=== PATIENT | female | born 1975 | race Hispanic/Latino ===

== ENCOUNTER → 2019-03-09 | Outpatient (CLI) | payer OTHER | END | disposition home or self-care (01) | LOC: RAH 08:43 | PROVIDERS: ATTEND Family Medicine | DX: E03.9 Hypothyroidism, unspecified (principal) | CPT/HCPCS: 76536 ==

== ENCOUNTER 2019-05-22 04:06 | Emergency (ER) | payer OTHER ==
[2019-05-22] MEDS ORDERED: ASPIRIN 81MG TAB.CHEW ONE (04:19)
[2019-05-22 04:41] LABS: BASOPHILS % (AUTO) 0.7 % (0.0-5.0); LYMPHOCYTES % (AUTO) 42.8 % (21.0-51.0); MEAN CORPUSCULAR HEMOGLOBIN 24.1 pg (27.0-33.0); MEAN CORPUSCULAR HGB CONC 32.2 g/dL (32.0-36.0); MEAN CORPUSCULAR VOLUME 74.8 fL (79-99); NEUTROPHILS % (AUTO) 47.5 % (40.0-77.0); NUCLEATED RED BLOOD CELLS 0.1 % (0.0-0.19); PLATELET COUNT (AUTO) 444 K/uL (130-400); RED BLOOD CELL COUNT(AUTO) 4.68 MIL/uL (4.00-5.50); RED CELL DISTRIBUTION WIDTH 17.3 % (11.0-15.5); WHITE BLOOD COUNT (AUTO) 7.2 K/uL (4.8-10.8)
[2019-05-22] MEDS ORDERED: ORPHENADRINE CITRATE 30 MG/ML ML ONE (04:44)
[2019-05-22 04:58] LABS: INR 0.93 (0.85-1.15); PARTIAL THROMBOPLASTIN TIME 25.6 SEC (26.3-35.5); PROTHROMBIN TIME 9.8 SEC (9.6-11.6)
[2019-05-22 05:03] LABS: CREATININE 0.9 mg/dL (0.5-1.5); POTASSIUM 3.7 mmol/L (3.5-5.1)
[2019-05-22 05:08] LABS: ALBUMIN 3.5 g/dL (3.5-5.0); BILIRUBIN,TOTAL 0.3 mg/dL (0.2-1.0); TOTAL PROTEIN, SERUM 7.9 g/dL (6.0-8.3)
[2019-05-22 05:13] LABS: B-TYPE NATRIURETIC PEPTIDE 10 pg/mL (0-100)
[2019-05-22] MEDS ORDERED: KETOROLAC TROMETHAMINE 30MG/ML ONE (06:25)
== END 2019-05-22 06:44 | disposition home or self-care (01) ==
LOC: EDH 04:06
DX: R07.89 Other chest pain (principal); M54.6 Pain in thoracic spine; M62.838 Other muscle spasm; R42 Dizziness and giddiness; R55 Syncope and collapse; E11.9 Type 2 diabetes mellitus without complications
CPT/HCPCS: 36415; 71045; 80053; 82550; 83880; 84484; 85025; 85610; 85730; 93005; 96374; 96375; 99285; J1885; J2360

== ENCOUNTER 2024-12-02 00:28 | Observation (INO) | payer OTHER ==
[~2024-12-02] VITALS: Ht 167.6 cm; Wt 93.0 kg
[2024-12-02 01:09] LABS: BASOPHILS # (AUTO) 0.04 K/uL (0.00-0.20); BASOPHILS % (AUTO) 0.5 % (0.0-5.0); EOSINOPHILS # (AUTO) 0.16 K/uL (0.00-0.70); EOSINOPHILS % (AUTO) 2.1 % (0.0-8.0); HEMATOCRIT 27.3 % (36-48); IMMATURE GRANULOCYTE ABSOLUTE 0.03 K/uL (0-1); LYMPHOCYTES # (AUTO) 2.4 K/uL (1.0-4.8); LYMPHOCYTES % (AUTO) 31.7 % (21.0-51.0); MEAN CORPUSCULAR HEMOGLOBIN 19.2 pg (27.0-33.0); MEAN CORPUSCULAR HGB CONC 28.2 g/dL (32.0-36.0); MEAN CORPUSCULAR VOLUME 67.9 fL (79-99); MONOCYTES # (AUTO) 0.5 K/uL (0.1-1.0); MONOCYTES % (AUTO) 6.1 % (3.0-13.0); NEUTROPHILS # (AUTO) 4.5 K/uL (1.8-7.7); NEUTROPHILS % (AUTO) 59.2 % (40.0-77.0); PLATELET COUNT (AUTO) 447 K/uL (130-400); RED BLOOD CELL COUNT(AUTO) 4.02 MIL/uL (4.00-5.50); RED CELL DISTRIBUTION WIDTH 19.5 % (11.0-15.5); WHITE BLOOD COUNT (AUTO) 7.5 K/uL (4.8-10.8)
[2024-12-02] MEDS: acetaMINOPHEN 500 MG TABLET PO ONE (01:13)
[2024-12-02 01:18] LABS: CREATININE 0.8 mg/dL (0.5-1.0); POTASSIUM 3.7 mmol/L (3.5-5.1)
--- NOTE | 2024-12-02 02:00 | ERN ---
ED Note History of Present Illness Stated Complaint: C/O CP WITH SOB Chief Complaint: Chest Pain Time Seen by MD: 00:32 Dictation: Patient comes in the hospital. Because she said she had some chest tightness. Was shortness of breath. She stated that this was about 3-4 hours prior to admission. Around 9:00 p.m.. She comes in around midnight. 1:00 a.m.. She says she does have AFib takes beta-fe and Eliquis. Denies any other previous medical problems denies any previous heart attack strokes Allergies: Coded Allergies: No Known Drug Allergies (Unverified Allergy, Unknown, 05/22/19) Past Medical History Past Medical History: A-Fib, Anemia, Diabetes-Type II Surgical History: Cholecystectomy, Other Surgical History Other: TUBAL LIGATION Review of System Dictation Constitutional: Negative for fever,chills, and weight loss Eyes: Negative for injury, pain,redness, and discharge ENT: Negative for injury,pain or swelling Cardiovascular: Chest pain Respiratory: Negative for shortness of breath, cough, and wheezing, Abdomen/GI: Negative for abdominal pain, nausea, vomiting, diarrhea, and constipation Back: Negative for injury and pain : Negative for injury, bleeding and discharge MS/Extremity: Negative for injury and deformity Skin: Negative for rash, and discoloration Neuro: Negative for headache, weakness, numbness, tingling, and seizure Psych: Negative for suicide ideation, homicidal ideation, and hallucinations Initial Vital Sign VS Vital Signs Date Time Temp Pulse Resp B/P (MAP) Pulse Ox O2 Delivery O2 Flow Rate FiO2 12/02/24 00:36 98.4 97 20 119/76 98 Room Air 12/02/24 01:07 0 21 Physical Exam Dictation General: awake, alert, NAD Head/Face: Normocephalic, atraumatic Eyes: PERRL, EOMI, vision at baseline ENT: oral cavity clear, TMs clear, no signs of infection Neck: Trachea midline, supple, no nuchal rigidity Cardiovascular: RRR, normal S1/S2, No MRGs, no JVD Respiratory: CTAB, no respiratory distress, No rales or wheezes Abdomen: Soft, non-tender, non-distended, normal bowel sounds, no guarding or rebound. Skin: Warm, dry, normal turgor, no rash MS/Extremity: Pulses equal, no cyanosis, neurovascular intact, FROM Neuro: COAx4, GCS 15, strength 5/5, CN 2-12 intact, normal cerebellar exam, normal gait, Psych: Normal behavior, mood, and affect normal Results (Laboratory/Radiology) Laboratory/Radiology Laboratory Tests Test 12/02/24 00:57 White Blood Count 7.5 K/uL (4.8-10.8) Red Blood Count 4.02 MIL/uL (4.00-5.50) Hemoglobin 7.7 g/dL (12.0-16.0) L Hematocrit 27.3 % (36-48) L Mean Corpuscular Volume 67.9 fL (79-99) L Mean Corpuscular Hemoglobin 19.2 pg (27.0-33.0) L Mean Corpuscular Hemoglobin Concent 28.2 g/dL (32.0-36.0) L Red Cell Distribution Width 19.5 % (11.0-15.5) H Platelet Count 447 K/uL (130-400) H Mean Platelet Volume 8.9 fL (7.5-10.5) Immature Granulocyte % (Auto) 0.4 % (0-1) Neutrophils (%) (Auto) 59.2 % (40.0-77.0) Lymphocytes (%) (Auto) 31.7 % (21.0-51.0) Monocytes (%) (Auto) 6.1 % (3.0-13.0) Eosinophils (%) (Auto) 2.1 % (0.0-8.0) Basophils (%) (Auto) 0.5 % (0.0-5.0) Neutrophils # (Auto) 4.5 K/uL (1.8-7.7) Lymphocytes # (Auto) 2.4 K/uL (1.0-4.8) Monocytes # (Auto) 0.5 K/uL (0.1-1.0) Eosinophils # (Auto) 0.16 K/uL (0.00-0.70) Basophils # (Auto) 0.04 K/uL (0.00-0.20) Absolute Immature Granulocyte (auto 0.03 K/uL (0-1) Nucleated Red Blood Cells 0.0 % (0.0-0.19) Sodium Level 138 mmol/L (136-145) Potassium Level 3.7 mmol/L (3.5-5.1) Chloride Level 102 mmol/L (101-111) Carbon Dioxide Level 27 mmol/L (21-32) Blood Urea Nitrogen 9 mg/dL (7-18) Creatinine 0.8 mg/dL (0.5-1.0) Glomerular Filtration Rate Calc 91 mL/min (>90) Random Glucose 125 mg/dL (70-105) H Total Calcium 9.1 mg/dL (8.5-10.1) Troponin I High Sensitivity 10 ng/L (4-50) ED Course ED Course Orders Procedure Category Date Status Time Vital Signs Per CPOE 12/02/24 Transmitted Routine 00:32 B-Type Natriuretic LAB 12/02/24 In Process Peptide 00:32 Chest 1vw RAD 12/02/24 Taken 00:32 12 Lead Ekg Tracing- EKG 12/02/24 Logged Technical 00:32 Oxygen By Nc/Pulse Ox CPOE 12/02/24 Transmitted 00:32 Maintain Iv CPOE 12/02/24 Transmitted 00:32 Iv Insertion CPOE 12/02/24 Transmitted 00:32 Cardiac Monitoring CPOE 12/02/24 Transmitted 00:32 Pulse Oximetry With CPOE 12/02/24 Transmitted Vs And Prn 00:32 Cbc With Differential LAB 12/02/24 In Process 00:32 Activity: Br W/Brp CPOE 12/02/24 Transmitted With Assist 00:32 Troponin I High LAB 12/02/24 Complete Sensitivity 00:32 Urinalysis Profile LAB 12/02/24 Logged 00:32 Basic Metabolic Panel LAB 12/02/24 Complete 00:32 Acetaminophen 500mg PHA 12/02/24 Complete Tab (Tylenol 500mg T 01:00 Current Medications Medications (Trade) Dose Ordered Sig/Monica Route PRN Reason Start Time Stop Time Status Last Admin Dose Admin Acetaminophen (TYLenol 500MG TAB) 500 mg ONCE ONCE PO 12/02/24 01:00 12/02/24 01:01 DC 12/02/24 01:13 Vital Signs Date Time Temp Pulse Resp B/P (MAP) Pulse Ox O2 Delivery O2 Flow Rate FiO2 12/02/24 01:54 98.2 82 18 122/74 97 Room Air* 0 21 12/02/24 01:07 98.4 92 18 125/74 96 Room Air* 0 21 12/02/24 00:36 98.4 97 20 119/76 98 Room Air Medical Decision Making MDM Had a pleasant conversation on multiple occasions with both the patient and the the family and they were significant other present. Her EKG does appear to be within normal limits there was no AFib no certainly present. She might have paroxysmal PVCs or paroxysmal AFib. But she was adamant that she was on blood thinners. He has the Eliquis for this. Heart score for her likely would be around three. I asked if she wanted pain medication recording or starting pigmented pain medication he says said no she would just initially like the labs and tests I placed Tylenol for the patient. I did re-evaluate the patient around 2:00 a.m. in the morning. She says she still does have this chest pressure. She was not tachycardic she was already on Eliquis unlikely to be PE. My spoke to the patient I told her again she was in the middle scenario. She was not low wrists not high-risk she was kind of an intermediate risk. I have given that she is still having pain. She does have the AFib and on blood thinner. I told her that I could recommend that she has right observation for least 12-24 hours they were in agreement okay with this no other questions complaints concerns at this time. MDM: Differential diagnosis: Rationale: Tests considered and ordered secondary to shared decision making include: labs, ECG and radiology Previous outside records reviewed: Old ER visits. Risk of complication and/or morbidity or mortality of patient management: None Medications-Per medication reconciliation Need for hospitalization: Patient does meet criteria for hospitalization. Need for emergency major/minor surgery: No There are no social concerns with this patient. Prescription drug management Prescriptions will include symptomatic care Patient's prior external medical records from other ER visits were reviewed by me as indicated. Prior testing and results from previous visits were reviewed. Prior tests were taken into account with medical decision making and resource utilization, independent historian/historians were used to obtain complete medical history. I independently interpreted the test that were performed, results were reviewed by me and considered findings on radiology if ordered. Medical management and examination interpretation discussions were had by me with other qualified healthcare professionals as indicated for the patient's care. DX & DISP Disposition: Inpatient Departure Impression: Primary Impression: Chest pain Condition: Stable Referrals: HECTOR SALDANA MD (PCP) JAMEE YO MD Dec 02, 2024 02:00
[2024-12-02 02:11] LABS: B-TYPE NATRIURETIC PEPTIDE 11 pg/mL (0-100)
[2024-12-02] MEDS ORDERED: DEXTROSE 5 %-0.45 % NACL 500 ML IV SCH (03:30)
--- NOTE | 2024-12-02 05:00 | NUR ---
PATIENT REPORT GIVEN TO MARILYN WYNN
[2024-12-02 05:20] VITALS: BP 109/57; PULSE 80; RESP 17; TEMP 97.9; O2SAT 95
[2024-12-02] MEDS: morPHINE 2 MG SYG IVP PRN (05:50)
[2024-12-02 05:52] LABS: BASOPHILS # (AUTO) 0.05 K/uL (0.00-0.20); BASOPHILS % (AUTO) 0.7 % (0.0-5.0); EOSINOPHILS # (AUTO) 0.15 K/uL (0.00-0.70); EOSINOPHILS % (AUTO) 2.2 % (0.0-8.0); HEMATOCRIT 26.9 % (36-48); IMMATURE GRANULOCYTE ABSOLUTE 0.02 K/uL (0-1); LYMPHOCYTES # (AUTO) 2.5 K/uL (1.0-4.8); LYMPHOCYTES % (AUTO) 35.3 % (21.0-51.0); MEAN CORPUSCULAR HGB CONC 27.9 g/dL (32.0-36.0); MEAN CORPUSCULAR VOLUME 68.1 fL (79-99); MONOCYTES # (AUTO) 0.4 K/uL (0.1-1.0); NEUTROPHILS # (AUTO) 3.9 K/uL (1.8-7.7); NEUTROPHILS % (AUTO) 55.5 % (40.0-77.0); PLATELET COUNT (AUTO) 432 K/uL (130-400); RED BLOOD CELL COUNT(AUTO) 3.95 MIL/uL (4.00-5.50); RED CELL DISTRIBUTION WIDTH 19.3 % (11.0-15.5)
[2024-12-02 06:17] LABS: CREATININE 0.7 mg/dL (0.5-1.0); POTASSIUM 3.8 mmol/L (3.5-5.1)
--- NOTE | 2024-12-02 06:28 | EKG ---
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
[2024-12-02 08:00] VITALS: BP 104/65; PULSE 80; RESP 17; TEMP 97.7
[2024-12-02] MEDS ORDERED: PoTASSium chl 10% ELIXIR 20MEQ 20 MEQ/15 ML UDCUP PO PRN (08:30)
[2024-12-02] MEDS ORDERED: PoTASSium chloRIDE 20MEQ ER 20 MEQ ERTAB PO PRN (08:30)
[2024-12-02 09:01] VITALS: O2SAT 96
--- NOTE | 2024-12-02 09:47 | HMCIMG ---
PORTABLE CHEST RADIOGRAPH INDICATION: CHEST PAIN COMPARISON: 05/22/2019 FINDINGS: satellite project site monitor leads overlie the field of view. Heart size is normal. The pulmonary vascularity and peyman appear normal. No abnormal pulmonary parenchymal opacity or consolidation identified. No significant pleural effusion noted. No pneumothorax detected. IMPRESSION: No radiographic evidence for any acute cardiopulmonary process.
[2024-12-02] MEDS ORDERED: REGADENOSON 0.4 MG/5 ML PF SYG IVP ONE (10:41)
[2024-12-02 12:01] VITALS: BP 124/73; PULSE 84; RESP 18; TEMP 98.2
[2024-12-02] MEDS: PoTASSium chloRIDE 20MEQ/100ML 100 ML IV PRN (12:08)
[2024-12-02] MEDS ORDERED: IRON1CAP30 PO (12:18)
[2024-12-02] MEDS ORDERED: MAGN400T25 PO (12:18)
[2024-12-02] MEDS ORDERED: METO-408 PO (12:18)
[2024-12-02] MEDS ORDERED: TIRZ7.5P SQ (12:18)
[2024-12-02] MEDS ORDERED: METF-444 PO (12:18)
[2024-12-02] MEDS ORDERED: ROSU20TA98 PO (12:18)
[2024-12-02] MEDS ORDERED: GLIM4TAB36 PO (12:18)
[2024-12-02] MEDS ORDERED: CHOL500050 PO (12:18)
[2024-12-02] MEDS ORDERED: ATOR40TA71 PO (12:19)
[2024-12-02] MEDS ORDERED: PIOG30TA70 PO (12:19)
[2024-12-02] MEDS ORDERED: APIX5TAB PO (12:19)
--- NOTE | 2024-12-02 13:06 | HP ---
HISTORY OF PRESENT ILLNESS: The patient of Dr. Real, came to the Emergency Room complaining of chest pain reported as a heaviness on the left side of her chest, not alleviated, associated with shortness of breath for the last couple of days. He got on and off, lasting for 3-4 hours prior to visiting the Emergency Room. ALLERGIES: No known drug allergies. PAST MEDICAL HISTORY: Type 2 diabetes, atrial fibrillation, chronic anemia, chronic anticoagulation. REVIEW OF SYSTEMS: No fever, chills, seizures, loss of consciousness. No diplopia, dysarthria or dysphonia. No neck pain. No cough, wheezes, rhonchi. No wheezing. No palpitations, no dizziness. No abdominal pain, no nausea, vomiting, diarrhea. No dysuria, urgency, or frequency. No rashes, petechia or ecchymoses. No hallucinations, delusions, no suicidal ideation. No paresis, no paresthesias. PHYSICAL EXAMINATION: GENERAL: She is currently awake, alert, oriented in person, time, and place, not in distress. VITAL SIGNS: Blood pressure 119/76, pulse 98, respiratory rate 20, O2 saturation 97% on room air. HEENT: Normocephalic, atraumatic. LUNGS: Clear to auscultation. HEART: S1, S2 are distant. No S3, S4, no friction rubs or murmurs. ABDOMEN: Soft, nontender, no masses. EXTREMITIES: No clubbing, cyanosis, no edema. LABORATORY DATA: WBC count 7.5, hemoglobin 7.7, platelets 447. Sodium 138, potassium 3.7, BUN 9, creatinine 0.8, glucose 125. Troponin 10. DIAGNOSTIC DATA: EKG was reported as ventricular rate of 90 per minute, [place] 129, QRS 23. No previous EKG for comparison. ASSESSMENT: * Chest pain. The patient will be admitted, have troponins trending q. 6 hours, have a cardiology consultation. * Atrial fibrillation. Continue home medications. Echocardiogram was scheduled. Cardiology consultation requested. * Type 2 diabetes. Continue home medications. * Anticoagulation, continue with Eliquis. PLAN: Followup by Dr. Real in a.m. DOS: 12/02/2024 TID: [id number] RECEIPT: [id number] [facility]
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
--- NOTE | 2024-12-02 14:43 | HMCSR ---
APPROVED REPORT EXAM: Two-dimensional and M-mode echocardiogram with Doppler and color Doppler. INDICATION ICD: Chest Pain 2D Dimensions RVDd3.7 cmLVEF(%)65.0 (>50%)LVED Vol(simp.)90.0 mL IVSd0.7 (0.7-1.1cm)FS(%)35 %LVES Vol(simp.)39.0 mL LVDd4.5 (3.8-5.6cm)LA (2D)3.3 (1.6-4.0cm)LVEF(%, simp.)57 % PWd0.8 (0.7-1.1cm)Ao Root(2D)2.8 (2.0-3.7cm)LA ESV INDEX (BP)25.61 mL/m2 IVSs1.0 cmLVOT diam2.2 (1.8-2.4cm) LVDs2.9 (2.5-4.0cm)IVC diam2.2 cm PWs1.4 cm Deformation Strain Apical 4-17.0 % Apical 2-19.0 % Apical 3-20.0 % Global Strain-19.0 % M-Mode Dimensions EPSS0.6 cm LA (MM)3.6 (1.6-4.0cm) Ao Root(MM)2.9 (2.0-3.7cm) Aortic Valve AoV Vmax1.1 m/Diana Peak GR4.9 mmHgLVOT Vmax0.9 m/s AoV VTI0.2 mAo Mean GR2.9 mmHgLVOT VTI0.20 m ADRIAN (VMAX)3.6 cm2AVA (VTI) 3.6 cm2 Mitral Valve MV E Vmax65.9 cm/sDECEL Tdjk824 ms MV A Vmax46.1 cm/sP 1/2 T65 ms E/A ratio1.4MVA (PHT)3.4 cm2 TDI E/E' Medial5.5E/E' Lateral4.7 Medial E' Peak V12.00 cm/sLateral E' Peak V14.00 cm/s Pulmonary Valve PV Vmax0.8 m/s Tricuspid Valve RAP (EST) 8 mmHgRVSP8.0 mmHg Left Ventricle The left ventricle is normal size. Normal wall motion There is normal left ventricular wall thickness . LVEF is 60-65%. The left ventricular diastolic function is normal. Right Ventricle The right ventricle is normal size. The right ventricular systolic function is normal. Atria The left atrium size is normal. The right atrium is borderline dilated. Aortic Valve Aortic valve is trileaflet and opens well. No aortic regurgitation is present. There is no aortic keo vular stenosis. Mitral Valve The mitral valve is normal in structure. There is no mitral valve regurgitation noted. There is no mi tral valve stenosis. Tricuspid Valve The tricuspid valve is normal in structure. There is no tricuspid valve regurgitation noted. Pulmonic Valve The pulmonary valve is normal in structure. There is no pulmonic valvular regurgitation. Great Vessels The aortic root is normal in size. IVC is dilated and collapses >50% with inspiration. Pericardium There is no pericardial effusion. Other Information Quality : Adequate Conclusion LVEF is 60-65%. The left ventricular diastolic function is normal. There is normal left ventricular wall thickness. Normal wall motion There is no pericardial effusion. Normal pulmonary pressures Study quality was adequate
--- NOTE | 2024-12-02 14:46 | HMCSR ---
APPROVED REPORT Height: 5 ft 6in Weight: 205 lbs TEST INDICATIONS Chest Pain The imaging protocol used to acquire images was Rest Tc-99m/stress Tc-99m 1 day Consent: The procedure was explained and understood by the patient. Informerd consent was witnessed Brunilda Miller RN First, low dose rest was performed then high dose stress. RESTING DATA: The resting ekg shows: NSR Rest SPECT myocardial perfusion imaging was performed in supine position minutes following the intra venous injection of 10 mCi of Tc-99 Sestamibi. Time of rest injection: 09:40: Date: 12/02/2024 PHARMACOLOGIC STRESS: Pharmacologic stress test was performed by injecting regadenoson 0.4 mg IV push followed by the intra venous injection of 29 mCi of Tc-99 Sestamibi. Time of stress injection: 11:15: Date: 12/02/2024 Heart Rate at time of stress injection: 76 bpm. Gated Stress SPECT was performed 60 minutes after stress injection. The images were gated to evaluate regional wall motion and calculate left ventricular ejection fracti on. STRESS DETAILS Reason for Termination: Infusion complete Stress Symptoms: Dyspnea Max HR Achieved: 105 bpm % of APMHR Achieved: 71 Max Blood Pressure: 120/69 mmHg Stress ECG: NSR LV PERFUSION There is a moderate to large sized area of decreased tracer uptae in the apical and inferolateral wal ls that is predominantly similar in both stress and rest images with no evidence of ischemia. Low risk study as above
--- NOTE | 2024-12-02 14:47 | CONS ---
CONSULT NOTE: CARDIOLOGY Reason for consult: Chest pain HPI/story at presentation: This is a pleasant 49-year-old female with past medical history as below presents for evaluation of chest discomfort. She was feeling a chest pressure- like sensation and here for further management of this. Urology was consulted for further management Subjective: 12/02/2024 no active cardiac complaints Past medical history: See below Allergies, Meds See chart Review of systems Review of Systems Constitutional: Negative for chills and fever. HENT: Negative for ear discharge and ear pain. Eyes: Negative for photophobia and discharge. Respiratory: Negative for cough, sputum production and stridor. Cardiovascular: Negative for chest pain and palpitations. Gastrointestinal: Negative for diarrhea and vomiting. Genitourinary: Negative for frequency. Musculoskeletal: Negative for myalgias. Skin: Negative for rash. Neurological: Negative for focal weakness and seizures. Endo/Heme/Allergies: Negative for polydipsia. Psychiatric/Behavioral: Negative for hallucinations. Vitals see chart PHYSICAL EXAMINATION GENERAL: The patient is alert and oriented*3 HEENT: Nonicteric sclerae, non traumatic HEART: Regular rate and rhythm with no murmurs LUNGS: Clear to auscultation bilaterally ABDOMEN: No acute issues, non tender GENITAL, RECTAL: deferred SKIN: No rash NEUROLOGIC: NFND EXTREMITIES: No edema ASSESSMENT CHEST PAIN Stress test, normal, low risk, 11/2024 Normal EF echocardiogram, 11/2024 Negative troponins, no ischemic changes on EKG, 11/2024 ATRIAL FIBRILLATION History of On anticoagulation at home DIABETES CORE MEASURES Not applicable OTHER MEDICAL PROBLEMS Reviewed PLAN 12/02/2024 active cardiac complaints at this time, stress test and echocardiogram within normal is, clinic to be discharged home from a cardiac standpoint with outpatient follow-up. May need to consider rhythm control atrial fibrillation. Seen and examined 12/02/2024 at around 1400 ATTESTATION I was involved substantially in the care of this patient Number and complexity of problems addressed: 1 acute illness with systemic features Amount and or complexity of data Review of prior external note(s) from each unique source: 2+ Ordering of each unique test : 0 Review of the result(s) of each unique test: 2+ Assessment requiring an independent historian(s): No Independent interpretation of test performed by another MD/QHCP/appropriate source (not separately reported) : No Discussion of management or test interpretation with external MD/QHCP/appropriate source (not separately reported) : No Risk status (cardiac, billing related): Moderate JESSICA ABBOTT MD Dec 02, 2024 14:47
[2024-12-02 16:00] VITALS: BP 132/57; PULSE 81; RESP 18; TEMP 97.9
--- NOTE | 2024-12-02 19:48 | NUR ---
D/C INSTRUCTIONS GIVEN AND ACKNOWLEDGED. IV REMOVED
[2024-12-02 20:00] VITALS: BP 111/68; PULSE 89; RESP 16; TEMP 98.7
[2024-12-02] MEDS ORDERED: metFORmin HCL 500 MG TABLET PO SCH (21:00)
[2024-12-02] MEDS ORDERED: APIXaban 5 MG TABLET PO SCH (21:00)
[2024-12-02] MEDS ORDERED: NON-FORMULARY MEDICATION 1 EACH (Rosuvastatin Calcium 1 TAB) PO SCH (21:00)
[2024-12-03] MEDS ORDERED: VIT C PO SCH (09:00)
[2024-12-03] MEDS ORDERED: [UNRECOGNIZED DRUG - OTHER] PO SCH (09:00)
[2024-12-03] MEDS ORDERED: PS CMP PO SCH (09:00)
[2024-12-03] MEDS ORDERED: MAGNESIUM OXIDE 400 MG TABLET PO SCH (09:00)
[2024-12-03] MEDS ORDERED: metOPROLol sucCINATE 25 MG TAB.SR.24H PO SCH (09:00)
[2024-12-03] MEDS ORDERED: GLIMEPIRIDE 2 MG TABLET PO SCH (09:00)
[2024-12-03] MEDS ORDERED: atorVAStatin 40 MG TABLET PO SCH (09:00)
[2024-12-03] MEDS ORDERED: IRON FUM PO SCH (09:00)
[2024-12-09] MEDS ORDERED: CHOLECALCIFEROL PO SCH (09:00)
[2024-12-09] MEDS ORDERED: TIRZEPATIDE SQ SCH (09:00)
== END 2024-12-02 20:20 | disposition still patient (30) ==
LOC: EDH 00:28 → EDHIP 03:25 → INTOOBSV 03:25 → 3CH 05:00
PROVIDERS: ADMIT Internal Medicine; ATTEND Internal Medicine
DX: R07.89 Other chest pain (principal); I48.91 Unspecified atrial fibrillation; E11.9 Type 2 diabetes mellitus without complications; Z79.01 Long term (current) use of anticoagulants; Z79.899 Other long term (current) drug therapy
CPT/HCPCS: 36415; 71045; 78452; 80048; 82550; 83880; 84484; 85025; 86850; 86900; 86901; 93005; 93017; 93306; 93356; 96361; 96374; 99285; A9500; G0378; J2270; J2785; J3480